=== PATIENT | female | born 2000 | race Native Hawaiian/Other Pacific Islander ===

== ENCOUNTER 2020-08-01 13:28 | Outpatient (CLI) | payer OTHER, BC ==
[2020-08-01 13:58] LABS: PLATELET COUNT 253 K/uL (152-353)
[2020-08-01 14:14] LABS: POTASSIUM 3.8 mmol/L (3.6-5.2)
== END 2020-08-01 21:57 | disposition home or self-care (01) ==
LOC: LABW 13:28
PROVIDERS: ATTEND Internal Medicine
DX: R10.9 Unspecified abdominal pain (principal)
CPT/HCPCS: 36415; 80053; 81000; 81025; 85027; 87086; 87088